=== PATIENT | female | born 1985 | race African-American/Black ===

== ENCOUNTER 2021-11-13 11:54 | Observation (INO) ==
[2021-11-13 12:30] LABS: Bilirubin,Urine Negative (Negative); Blood, Urine Negative (Negative); Glucose,Urine (UA) Negative (Negative); Ketones,Urine 80 mg/dL (Negative); Mucus,Urine Many /LPF (Occasional); Nitrite,Urine Negative (Negative); Protein,Urine 30 MG/DL; RBC,Urine 1 /HPF (0-4); Squamous Epithelial Cell,Urine Occasional /HPF (0-10); Urine Appearance CLEAR (Clear); Urine Color Yellow (Yellow); Urine Specific Gravity 1.031 (1.001-1.035); Urine Urobilinogen < 2.0 EU/DL (<2.0)
[2021-11-13] MEDS: LACTATED RINGERS 1,000 ML IV SCH (12:38)
[2021-11-13] MEDS: ONDANSETRON 4 MG/2 ML VIAL IV SCH ×2 (12:49→18:45)
[2021-11-13 13:22] LABS: Albumin 3.8 G/DL (3.4-5.0); Bilirubin,Total 1.2 MG/DL (0.20-1.00); Calcium 9.1 MG/DL (8.5-10.1); Osmolality,Calculated 265.2 MOS/KG (273-304); Potassium 3.4 MMOL/L (3.5-5.1); Total Protein 8.1 G/DL (6.4-8.2)
[2021-11-13 14:13] LABS: Basophils % 0.3 % (0.0-0.8); Eosinophils % 0.3 % (0.00-10.9); Hematocrit 45.2 VOL% (35.7-47.0); Immature Granulocytes % 0.3 %; Immature Granulocytes Absolute 0.02 #; Lymphocytes # 1.6 10*3/uL (1.4-4.0); Mean Corpuscular HGB Conc 33.2 GM/DL (32-36); Mean Corpuscular Volume 86.3 FL (87-102); Mean Platelet Volume 11.1 FL (9.6-12.0); Neutrophils % 66.1 % (38.7-73.9); Platelet Count 236 T/CUMM (130-400); Red Blood Count 5.24 MC/CUMM (3.8-5.5); White Blood Count 6.4 T/CUMM (4-12)
[2021-11-13] MEDS: THIAMINE INJ 100 MG, MULTIVITAMIN INJ 10 ML in SODIUM CHLORIDE 0.9% 1,000 ML IV SCH (14:41)
[2021-11-13] MEDS: FOLIC ACID 1 MG TABLET PO SCH (18:40)
[2021-11-13] MEDS ORDERED: DEXT 5% LACT RING KCL 20 MEQ 20 MEQ/1,000 ML BAG IV SCH (20:00)
[2021-11-14] MEDS: ONDANSETRON 4 MG/2 ML VIAL IV SCH ×4 (00:50→18:13)
[2021-11-14] MEDS ORDERED: POTASSIUM CHLORIDE INJ 20 MEQ in LACTATED RINGERS 1,000 ML IV SCH (01:00)
[2021-11-14] MEDS: FOLIC ACID 1 MG TABLET PO SCH (09:40)
[2021-11-14] MEDS: LACTATED RINGERS 1,000 ML IV SCH (10:41)
[2021-11-14] MEDS: THIAMINE INJ 100 MG, MULTIVITAMIN INJ 10 ML in SODIUM CHLORIDE 0.9% 1,000 ML IV SCH (16:42)
[2021-11-14] MEDS ORDERED: METOCLOPRAMIDE 10 MG/2 ML VIAL IV PRN (19:45)
[2021-11-14] MEDS ORDERED: LOPERAMIDE 2 MG CAPSULE PO PRN (19:46)
[2021-11-15] MEDS: ONDANSETRON 4 MG/2 ML VIAL IV SCH ×2 (00:16→05:55)
[2021-11-15] MEDS: LACTATED RINGERS 1,000 ML IV SCH (02:29)
[2021-11-15] MEDS: FOLIC ACID 1 MG TABLET PO SCH (09:02)
[2021-11-15 09:51] VITALS: BP 96/63
== END 2021-11-15 11:05 | disposition home or self-care (01) ==
LOC: N.OB 11:54 → N.OBOUT 11:54 → N.OB 11:56
PROVIDERS: ADMIT Obstetrics & Gynecology; ATTEND Obstetrics & Gynecology